=== PATIENT | male | born 1990 | race Caucasian/White ===

== ENCOUNTER 2018-09-05 17:31 | Emergency (ER) | payer OTHER ==
[2018-09-05] MEDS ORDERED: TDAP ADULT 0.5 ML INJ (BOOSTRIX) IM ONE (19:18)
--- NOTE | 2018-09-05 19:18 | EDPHY ---
H & P Time Seen by Provider: 09/05/18 19:06 HPI/ROS: CHIEF COMPLAINT: Right thumb laceration HISTORY OF PRESENT ILLNESS: 28-year-old left hand dominant male was cutting vegetables any sustained superficial laceration to the distal aspect of the right thumb. Occurred shortly prior to arrival. Tetanus out-of-date. No paresthesia. No sensory or motor deficits. PHYSICAL EXAM (Prior to examination, patient consented to physical exam, hands were washed and my usual and customary physical exam procedures followed) 1) GENERAL: Well-developed, well-nourished, alert and oriented. Appears to be in no acute distress. 2) HEAD: Normocephalic 3) HEENT: sclera anicteric 4) LUNGS: Breathing comfortably. 5) SKIN: Right thumb: Distal aspect of the patient's right thumb he has a superficial flap laceration which is attached by approximately 2 mm of nonviable flap tissue. Underlying this he has tissue with capillary bleeding 6) MUSCULOSKELETAL: Flexor extensor function at the MCP and IP intact. 7) NEUROLOGIC: Full sensation two-point discrimination intact. Smoking Status: Never smoked Constitutional: Initial Vital Signs Temperature (C) 37 C 09/05/18 17:46 Heart Rate 75 09/05/18 17:46 Respiratory Rate 18 09/05/18 17:46 Blood Pressure 129/73 H 09/05/18 17:46 O2 Sat (%) 96 09/05/18 17:46 O2 Delivery Mode Room Air Allergies/Adverse Reactions: No Known Allergies Allergy (Unverified 09/05/18 17:46) Home Medications: Medication Instructions Recorded NK [No Known Home Meds] 09/05/18 MDM/Departure - [facility] Procedures: Procedure: Wound management. I explained the indications, risks and benefits for both laceration repair and anesthetic administration. Verbal consent was obtained from the patient. The flap laceration on the right thumb was anesthetized using 0.5% bupivicaine without epinephrine digital nerve block. After anesthetic administered the patient was observed for a period of time and had no apparent adverse effects. The wound was cleaned, prepped, draped in normal sterile fashion and explored to its base. No foreign body seen, no foreign bodies palpated. The tissue was debrided, the flap was removed. Surgicel dressing applied by ER staff resulting in hemostasis. Patient tolerated procedure well. Medications Given: Discontinued Medications Diphtheria/Tetanus/Acell Pertussis (Boostrix) 0.5 ml IM .ONCE ONE Stop: 09/05/18 19:19 Last Admin: 09/05/18 19:57 Dose: 0.5 ml ED Course/Re-evaluation: Re-evaluation with serial exams. Wound will granulate via secondary intention. Informed that scarring will occur. He feels comfortable being discharged. Patient feels comfortable being discharged. All questions and concerns addressed by myself. Patient given my usual and customary discharge precautions and instructions regarding their clinical impression. Care of patient under supervision of secondary supervising physician Dr Stover . - Depart Disposition: Home, Routine, Self-Care Clinical Impression: Avulsion of skin of right thumb Qualifiers: Encounter type: initial encounter Qualified Code(s): S61.001A - Unspecified open wound of right thumb without damage to nail, initial encounter Condition: Good Instructions: Skin Avulsion (ED) Additional Instructions: Return to the ER if you develop redness, swelling, discharge, warmth to the wound, red streaks going up your arm, or any other symptoms that concern you. Referrals: Antonio Huggins MD [Medical Doctor] - 2-3 days, call for appt.
[2018-09-05] MEDS ORDERED: ACETAMINOPHEN 500 MG TAB ONE (19:56)
[2018-09-05 20:42] VITALS: BP 122/72
== END 2018-09-05 20:40 | disposition home or self-care (01) ==
DX: S61.011A Laceration without foreign body of right thumb without damage to nail, initial encounter (principal); W26.0XXA Contact with knife, initial encounter; Y93.G1 Activity, food preparation and clean up; Y92.000 Kitchen of unspecified non-institutional (private) residence as the place of occurrence of the external cause; Z23 Encounter for immunization